=== PATIENT | male | born 1990 | race Caucasian/White ===

== ENCOUNTER 2021-03-05 22:33 | Day surgery (SDC) | payer OTHER, SELFPAY ==
[2021-03-05] MEDS: Oxymetazoline 0.05% 1 SPRAY SPRAY.BTL 15 SPRAY (23:05)
[2021-03-05] MEDS: Lidocaine 4% 50 ML Bottle (23:05)
[2021-03-06] MEDS: Bacitracin 500 UNITS/GM PACKET (00:05)
[2021-03-06 00:28] VITALS: BP 109/71; BP 110/70; PULSE 64; RESP 16; TEMP 36.2; O2SAT 95
--- NOTE | 2021-03-06 00:28 | PCM.OPRPT ---
Problems Associated Problem List Diagnoses (1) Epistaxis: (2) Deviated nasal septum: Report of Operation Date of Procedure: 03/06/21 Pre-Operative Diagnosis: Epistaxis Post-Operative Diagnosis: Same Surgery/Procedure Performed:: Operative endoscopic control of epistaxis Description of Surgical Findings:: Chel is a 30-year-old male with severe bilateral epistaxis over the last 48 hours. He had been seen in the emergency room twice where attempts at packing and cauterization were unsuccessful in controlling his bleeding. He was subsequently seen in my office for further endoscopic evaluation and cauterization was performed however after several hours he resumed with blood clots draining postnasally and operative control given his nasal septal deviation which hindered assessment in view was advised. He was agreeable to proceed. The risks, alternatives, potential complications, and benefits were discussed at length and any questions answered to the patient and/or caregiver's satisfaction. Witnessed informed consent was obtained in the office, and the patient and/or caregiver was agreeable to proceed. Procedure went as follows: The patient was identified in the preoperative holding and brought to the operating room, was placed under general anesthesia and intubated using rapid sequence technique. When appropriate anesthesia was obtained, pledgets soaked in a 50-50 mixture of oxymetazoline and 4% topical lidocaine were placed to decongest the nasal mucosa. These were then removed and beginning on the left side using a 0? endoscope the nasal cavity examined. There is noted to be significant rightward nasal septal deviation which made visualization difficult. Bright red bleeding and organized clot was removed with a suction. There is noted to be extensive areas of bleeding along the posterior and mid section of the inferior turbinate as well as copious bleeding from the midportion of the middle turbinate. Using monopolar suction cautery these areas were then cauterized which resulted in significant reduction in the bleeding. There is additionally noted to be some bleeding from the left side along the inferior turbinate and this was additionally cauterized. It was challenging to determine given his previous extensive nasal instrumentation what was traumatic versus the original site of bleeding however with wide and careful cauterization hemostasis was able to be achieved. Merisel packs coated with bacitracin ointment were applied bilaterally for additional hemostatic effect given his frequent recurrent bleeding and return for treatment over the last 48 hours. At the end of the procedure no further bleeding from the anterior or posterior nasopharynx was noted. An NG tube was then placed to decompress the stomach and the patient returned to anesthesia, revived and extubated having tolerated the procedure well. Surgeon: Ming Martinez Type of Anesthesia: General Anesthesiologist: Rishabh Bowen Special Medications: none Specimen's removed: none Drains: none Estimated Blood Loss (mL): 50 mL Fluids Replaced: 1000 mL Grafts/Implants Used: Merocel Complications none Admit VTE Documentation VTE Present on Admission: No VTE Mechan Device Prophylaxis: None Reason prophylaxis not ordered:: Procedure Not Indicated
--- NOTE | 2021-03-06 00:35 | PCM.DC ---
Discharge Instructions Diet Discharge Diet: No restrictions Activity Discharge Activity: Return to Normal Activity Dressing / Incision Call your doctor if your incision/area has: Sudden Increased Bleeding Call your doctor if you observe: Fever of 101 or Higher and Uncontrolled pain Remove Dressing in: 3 days Follow Up Care Please Follow Up With: jalil When: 3 days for nasal pack removal Test Results: Test results from this visit will be discussed in further detail at your follow-up appointment, if applicable. Discharge Plan Admission Primary Reason for Your Visit: epistaxis Attending Provider: Ming Martinez Primary Care Provider: Irene Damon,Out of Discharge Orders/Prescriptions Prescriptions: No Action acetaminophen 500 mg capsule 1,000 mg PO Q8-10H PRNRF: 0 aspirin 325 mg tablet 325 mg PO DAILY RF: 0 levocetirizine [Xyzal] 5 mg tablet 5 mg PO QPM PRNRF: 0 triamcinolone acetonide [Nasacort] 55 mcg aerosol,spray 1 spray intranasal DAILY RF: 0 Referrals / Follow Up: Irene Damon,Out of [Primary Care Provider] - Disposition Disposition (needs filled in before D/C Order can be placed): Home, Self Care
[2021-03-06] MEDS: Lactated Ringers 1,000 ML 15 ML IV (00:45)
[2021-03-06 00:46] VITALS: BP 110/70; BP 129/84; PULSE 73; RESP 16; O2SAT 98
[2021-03-06 01:03] VITALS: BP 110/70; BP 131/61; PULSE 65; RESP 16; O2SAT 95
[2021-03-06 01:08] VITALS: BP 110/70; BP 132/74; PULSE 71; RESP 16; TEMP 37.2; O2SAT 100
[2021-03-06 01:44] VITALS: BP 110/70
== END 2021-03-06 01:44 | disposition home or self-care (01) ==
LOC: SDC 22:35 → ACINP 22:38
PROVIDERS: Visit Provider Otolaryngology
PROC: (CPT 31238; principal; 2021-03-05 23:30)
DX: R04.0 Epistaxis (principal); J34.2 Deviated nasal septum
CPT/HCPCS: 00160; 31238; J7120; J2405

== ENCOUNTER 2021-04-06 08:00 | Day surgery (SDC) | payer OTHER, BC, SELFPAY ==
[2021-04-06 08:23] VITALS: BP 124/81; PULSE 77; RESP 18; TEMP 36.4; O2SAT 100; BMI 37.5
[2021-04-06] MEDS: Lactated Ringers 1,000 ML 15 ML IV ×2 (08:35→10:45)
--- NOTE | 2021-04-06 09:30 | SEP_PTH ---
PATIENT: THIERRY CHINCHILLA [place] [facility] [place][id number] AGE/SX: 30/M ROOM: RE04/06/[address]: Dr. Ming Martinez MD : 1990 BED: DIS: 04/06/2021 SPEC #: [id number] RECD: 04/06/21 11:49 STATUS: PRACHI RELouise #: [id number] MOE: 04/06/21 09:[address]: Ming Martinez DEPT: SURGICAL PATHOLOGY RECD BY: Megan Bullock ENTERED: 04/06/21 12:45 SP TYPE: SEPTUM OTHR DR: Mata Davis, ENGRAVING SUPERVISOR-C Tissues: Nasal septum, NOS Procedures: Decalcification bone/plaque Special Stain Group I Surgery Specimen Level III GMS Stain (control) HEADER OPERATION: Septoplasty, submucous resection inferior turbinates PRE-OP DIAGNOSIS: Deviated nasal septum, bilateral turbinate hypertrophy TISSUE SUBMITTED: Nasal septum contents MICROSCOPIC DIAGNOSIS Nasal septum and contents, septoplasty: Hyaline cartilage and bone with no pathologic change. Respiratory mucosa with acute inflammation and fibrinoid material. Negative for fungal organisms. See comment. AM:des 04/11/2021 COMMENT GMS stain with matched control is used in the evaluation of this case. MICROSCOPIC DESCRIPTION Slides are reviewed. GROSS DESCRIPTION Received in fixative is one container labeled with the patient's name and designated nasal septum contents. The specimen consists of multiple irregular fragments of bone and cartilage mixed with hemorrhagic soft tissue that in aggregate measure 4 x 3 x 0.3 cm. The entire specimen is submitted in two cassettes after decalcification. / SJ:des 04/06/2021 TC:2 CPT: 72976, 91208, 01559
[2021-04-06] MEDS: Lidocaine 4% 50 ML Bottle (10:04)
[2021-04-06] MEDS: Oxymetazoline 0.05% 1 SPRAY SPRAY.BTL 15 SPRAY (10:04)
[2021-04-06] MEDS: Lidocaine 1% /Epi 1:100 (50ml) 50 ML VIAL (10:04)
[2021-04-06] MEDS: Bacitracin 500 UNITS/GM PACKET (10:27)
--- NOTE | 2021-04-06 10:38 | PCM.OPRPT ---
Problems Associated Problem List Diagnoses (1) Deviated nasal septum: (2) Hypertrophy of both inferior nasal turbinates: Report of Operation Date of Procedure: 04/06/21 Pre-Operative Diagnosis: Deviated nasal septum hypertrophy inferior nasal turbinates Post-Operative Diagnosis: Same Surgery/Procedure Performed:: Septoplasty, submucous resection of inferior nasal turbinates Description of Surgical Findings:: Chel is a 30-year-old male with a marked nasal septal deviation and hypertrophy of the inferior turbinates who had suffered a severe episode of epistaxis for which nasal packing was complicated due to the severity of his obstruction. His bleeding has been treated with cautery and he presents today for treatment of his nasal obstruction for the hopes of reduced risk of bleeding in the future as well as to facilitate any future nasal packing placement should the need arise. The risks, alternatives, potential complications, and benefits were discussed at length and any questions answered to the patient and/or caregiver's satisfaction. Witnessed informed consent was obtained in the office, and the patient and/or caregiver was agreeable to proceed. Procedure went as follows: The patient was identified in the preoperative holding and brought to the operating room, was placed under general anesthesia and intubated. When appropriate anesthesia was obtained, pledgets soaked in a 50-50 mixture of oxymetazoline and 4% topical lidocaine were placed to decongest the nasal mucosa. The nasal septum was then injected beginning on the left side with 1% lidocaine with 100,000 epinephrine for a total of 5 mL. The pledgets were then removed and the left nasal cavity examined. There was noted to be significant nasal septal deviation to the left with a large bony spur contacting the inferior turbinate and with an intervening broad adhesion. Using a 15 blade scalpel, a hemitransfixion incision was then made on the left side and using the Yudy elevator a subperichondrial/periosteal flap was elevated. The septum was then transected at the bony cartilaginous junction and a similar flap raised on the contralateral side. Using a Valentine forceps, the septum was then sharply transected superiorly and the deviated portions removed with a Scottie forceps. Any inferior bony spur was then removed with a chisel allowing for midline placement of the nasal septum. The adhesion to the inferior turbinate was then sharply transected along the left side. A similar adhesion on the right to the middle turbinate was transected freeing the nasal septum and the submucosal flaps to be then reapproximated. The hemitransfixion incision was then closed with interrupted 4-0 chromic gut suture followed by a 4-0 plain quilting suture to reapproximate the mucosal flaps. This completed the septoplasty portion of the procedure. Attention was then turned to the inferior nasal turbinates. Beginning on the left side, the anterior aspect of the inferior turbinate was then injected with 1% lidocaine with 100,000 epinephrine for a total of 2.5 mL bilaterally. Again beginning on the left side a 15 blade scalpel was used to create a stab incision in the anterior aspect of the turbinate. A caudal elevator was then used to elevate a submucosal plane. Using the microdebrider, the anterior bony and intervening submucosal tissue was then removed resulting in reduction of the inferior turbinate. Similar procedure was then completed on the contralateral side. Wang splints were then applied after coating with bacitracin ointment and secured to the columella with a single 3-0 Prolene suture. The patient was then returned to anesthesia, was revived and extubated having tolerated the procedure well without complications. Surgeon: Ming Martinez Type of Anesthesia: General Anesthesiologist: jagdeep Special Medications: none Specimen's removed: nasal septal and turbinate contents Drains: none Estimated Blood Loss (mL): 50 mL Fluids Replaced: 1000 mL Grafts/Implants Used: Wang splints Complications none Admit VTE Documentation VTE Present on Admission: No VTE Mechan Device Prophylaxis: SCD's VTE Pharm Prophylaxis ordered?: No
--- NOTE | 2021-04-06 10:48 | DCINST_ITS ---
Discharge Instructions Diet Discharge Diet: No restrictions Activity Discharge Activity: Return to Normal Activity Dressing / Incision Call your doctor if your incision/area has: Sudden Increased Bleeding, Increased Pain/ Swelling and Foul Smelling Discharge Call your doctor if you observe: Fever of 101 or Higher and Uncontrolled pain Follow Up Care Please Follow Up With: Ming Martinez MD When: 1 week Test Results: Test results from this visit will be discussed in further detail at your follow-up appointment, if applicable. Discharge Plan Admission Primary Reason for Your Visit: Deviated nasal septum, inferior turnbinate hypertrophy Attending Provider: Ming Martinez Primary Care Provider: Mata Davis NP Discharge Orders/Prescriptions Prescriptions: New acetaminophen 500 mg Tablet 500 mg PO Q4H PRN PRN (Reason: Pain Score 1-5/10) Qty: 0 RF: 0 hydrocodone-acetaminophen 5-325 mg Tablet 1 tab PO Q6H PRN PRN (Reason: Pain Score 6-10) 5 Days Qty: 10 RF: 0 Continued acetaminophen 500 mg capsule 1,000 mg PO Q8-10H PRN (Reason: Pain) RF: 0 levocetirizine [Xyzal] 5 mg tablet 5 mg PO QPM PRN (Reason: ALLERGIES) RF: 0 multivitamin Tablet 1 tab PO DAILY RF: 0 Referrals / Follow Up: Mata Davis NP, CONSTRUCTION DRILLER-C [Primary Care Provider] - Disposition Disposition (needs filled in before D/C Order can be placed): Home, Self Care
[2021-04-06 10:58] VITALS: BP 118/78; BP 124/81; PULSE 71; RESP 14; TEMP 35.8; O2SAT 90
[2021-04-06 11:00] VITALS: BP 124/81; BP 125/81; PULSE 71; RESP 14; O2SAT 97
[2021-04-06 11:15] VITALS: BP 124/81; BP 144/89; PULSE 78; RESP 14; O2SAT 99
[2021-04-06 11:33] VITALS: BP 124/81; BP 135/97; PULSE 65; RESP 14; TEMP 36.1; O2SAT 95
[2021-04-06] MEDS: HYDROcodone Bitartrate/Apap 5/325 Tablet PO (11:55)
[2021-04-06 12:10] VITALS: BP 124/81
== END 2021-04-06 23:59 | disposition home or self-care (01) ==
LOC: SDC 08:18 → AC 08:18
PROVIDERS: PCP Nurse Practitioner Primary Care; Referring Provider Otolaryngology; Visit Provider Otolaryngology
PROC: (CPT 30520; principal; 2021-04-06 09:15)
DX: J34.2 Deviated nasal septum (principal); J34.3 Hypertrophy of nasal turbinates; J01.20 Acute ethmoidal sinusitis, unspecified; Z86.16 Personal history of COVID-19; Z83.2 Family history of diseases of the blood and blood-forming organs and certain disorders involving the immune mechanism
CPT/HCPCS: 30520; 30140; 00160; 88304; 88311; 88312; J7120; J2405

== ENCOUNTER → 2022-10-09 | Outpatient (CLI) | payer BC, SELFPAY ==
--- NOTE | 2022-10-09 14:05 | VDLE_ITS ---
Reason For Study: Right calf pain RIGHT LEFT GSV is normal. CFV is compressible, spontaneous, phasic, CFV is compressible, spontaneous, phasic, competent, and demonstrates normal competent and demonstrates normal augmentation. augmentation. FV is compressible, spontaneous, phasic, competent and demonstrates normal augmentation. POP V is compressible, spontaneous, phasic, competent and demonstrates normal augmentation. T/P Trunk is compressible. PTV is compressible. RT PerV is compressible. Acute deep vein thrombosis is noted in the Gastrocnemius V. It is dilated and NONCOMPRESSIBLE. Procedure This is a venous duplex using B-mode, color flow and spectral Doppler. Exam performed in department. A preliminary report was called and/or faxed to [facility]INE[facility]. VL/Venous Duplex US, Unilateral Interpretation Summary Acute deep venous thrombosis right gastrocnemius vein. No evidence for proximal progression. Patent and compressible right great saphenous vein Normal flow patterns left common femoral vein Ordering Physician: Rodriguez Kerr Referring Physician: Vahe Herrera Performed By: Marcelle Chin RVT
== END | disposition home or self-care (01) ==
LOC: CVS 14:04
PROVIDERS: PCP Student in an Organized Health Care Education/Training Program; Referring Provider Internal Medicine Hematology & Oncology; Visit Provider Internal Medicine Hematology & Oncology
DX: I82.461 Acute embolism and thrombosis of right calf muscular vein (principal)
CPT/HCPCS: 93971